=== PATIENT | male | born 1990 | race Caucasian/White ===

== ENCOUNTER 2018-05-31 07:57 | Emergency (ER) | payer OTHER ==
[2018-05-31] MEDS ORDERED: MAG HYDROX/AL HYDROX/SIMETH SUSP 30 ML UDCUP PO ONE (08:18)
[2018-05-31] MEDS ORDERED: METOCLOPRAMIDE HCL ORAL SOLN 10 MG/10 ML UDCUP PO ONE (08:19)
[2018-05-31] MEDS ORDERED: GLUCAGON,HUMAN RECOMB 1 MG INJ IM ONE (08:19)
[2018-05-31] MEDS ORDERED: LIDOCAINE 2% VISCOUS SOLN 20 ML UDCUP PO ONE (08:19)
--- NOTE | 2018-05-31 09:36 | ER Document Report ---
ED GI/ - General Chief Complaint: Abdominal Pain Stated Complaint: ABDOMINAL PAIN Time Seen by Provider: 05/31/18 08:09 Mode of Arrival: Ambulatory Information source: Patient Notes: Patient is a 28-year-old male who presents with chief complaint of indigestion and possible food stuck in esophagus. Patient reports that he has a history of acid reflux, last night after eating seafood and steak he began having a pressure-like feeling in his epigastric area. Patient reports he took some Pepto-Bismol, drink some milk, took Tums and Prilosec OTC and went to bed. Patient reports when he woke up this morning the pain was still present, he took another tablet of Prilosec at that time. He then presented to the emergency department. Upon further questioning patient now reporting that he is vomiting every time he drinks anything. Patient speaking in full and complete sentences and states he can swallow his saliva. TRAVEL OUTSIDE OF THE [place] IN LAST 30 DAYS: No - Related Data Allergies/Adverse Reactions: No Known Allergies Allergy (Verified 05/31/18 07:57) Past Medical History - General Information source: Patient - Social History Smoking Status: Never Smoker Chew tobacco use (# tins/day): No Frequency of alcohol use: Heavy Drug Abuse: None Family History: Reviewed & Not Pertinent Patient has suicidal ideation: No Patient has homicidal ideation: No Renal/ Medical History: Denies: Hx Peritoneal Dialysis GI Medical History: Reports: Hx Gastroesophageal Reflux Disease Surgical Hx: Negative - Immunizations Immunizations up to date: Yes Review of Systems - Review of Systems EENT: Difficulty swallowing Gastrointestinal: See HPI -: Yes All other systems reviewed and negative Physical Exam - Vital signs Vitals: Temp Pulse Resp BP Pulse Ox 98.3 F 64 16 127/67 H 97 05/31/18 08:01 05/31/18 08:01 05/31/18 08:01 05/31/18 08:01 05/31/18 08:01 - Notes Notes: PHYSICAL EXAMINATION: GENERAL: Well-appearing, well-nourished and in no acute distress. HEAD: Atraumatic, normocephalic. EYES: Pupils equal round and reactive to light, extraocular movements intact, sclera anicteric, conjunctiva are normal. ENT: Nares patent, oropharynx clear without exudates. Moist mucous membranes. NECK: Normal range of motion, supple without lymphadenopathy LUNGS: Breath sounds clear to auscultation bilaterally and equal. No wheezes rales or rhonchi. HEART: Regular rate and rhythm without murmurs ABDOMEN: Soft, nontender, nondistended abdomen. No guarding, no rebound. No masses appreciated. Musculoskeletal: Normal range of motion, no pitting or edema. No cyanosis. NEUROLOGICAL: Cranial nerves grossly intact. Normal speech, normal gait. Normal sensory, motor exams PSYCH: Normal mood, normal affect. SKIN: Warm, Dry, normal turgor, no rashes or lesions noted. Course - Re-evaluation Re-evalutation: Patient was given 1 mg of glucagon IM, 30 minutes later patient was given a GI cocktail. Patient reports that he partially spit up the GI cocktail however patient is drinking a Gatorade and has been able to hold that down. Patient reports he is feeling much better after taking down the GI cocktail. Patient will be discharged home, patient will be instructed to follow-up with GI. Close ED return precautions. Immediate return to the ED if he is unable to swallow or if he vomits again. - Vital Signs Vital signs: Temp Pulse Resp BP Pulse Ox 98.3 F 64 16 127/67 H 97 05/31/18 08:01 05/31/18 08:01 05/31/18 08:01 05/31/18 08:01 05/31/18 08:01 Discharge - Discharge Clinical Impression: Esophagitis Condition: Stable Disposition: HOME, SELF-CARE Additional Instructions: Esophagitis Your evaluation has resulted in a diagnosis of esophagitis. This is an inflammation of the lower esophagus due to stomach acid. It causes symptoms such as chest pain, heartburn, or food "sticking." This is common in persons with a hiatal hernia. Certain foods, alcohol, and aspirin contribute to esophagitis. Treatment depends on the severity. Usually, antacids or acid-suppressing medicines are used. The physician will often prescribe membrane-protective drugs (such as Carafate). Some patients benefit from medication that tightens the valve at the top of the stomach (such as Reglan). Avoid alcohol, aspirin, caffeine, tobacco, and foods that cause heartburn ( such as chocolate). Elevate the head of your bed about four inches. Call the doctor if you develop severe chest pain, inability to swallow fluids, fever, or worsening symptoms. Continue to take Prilosec as directed. Please return to the emergency department immediately if you are unable to swallow fluids, you develop a fever or any other symptom that is concerning to you. Prescriptions: Metoclopramide HCl [Reglan 10 mg Tablet] 1 - 2 tab PO ASDIR PRN #25 tablet PRN Reason:
[2018-05-31 09:45] VITALS: BP 121/76
== END 2018-05-31 09:45 | disposition home or self-care (01) ==
LOC: ER 07:57
DX: K20.9 Esophagitis, unspecified (principal); R10.9 Unspecified abdominal pain
CPT/HCPCS: 99283; 96372; J1610; J3490